=== PATIENT | female | born 1930 | race Caucasian/White ===

== ENCOUNTER 2017-03-02 05:30 | Outpatient (CLI) | payer MEDICARE ==
[~2017-03-02] VITALS: Ht 162.6 cm; Wt 68.9 kg
[2017-03-02] MEDS ORDERED: LEVO112T2 PO (14:37)
== END 2017-03-02 14:50 ==
LOC: PREOP 05:30 → EDUNIT# 10:00 → PREOP 14:50
PROVIDERS: ATTEND Otolaryngology Otolaryngology/Facial Plastic Surgery
DX: Z01.818 Encounter for other preprocedural examination (principal); C44.219 Basal cell carcinoma of skin of left ear and external auricular canal

== ENCOUNTER 2017-03-08 06:30 | Day surgery (SDC) | payer MEDICARE ==
[~2017-03-08] VITALS: Ht 162.6 cm; Wt 68.9 kg
[~2017-03-08 06:30] MED LIST: LEVO112T2 PO
--- NOTE | 2017-03-08 06:52 | Progress Note-Pre Operative ---
Pre-Operative Progress Note H&P Reviewed The H&P was reviewed, patient examined and no changes noted. Date Seen by Provider: Mar 08, 2017 Time Seen by Provider: 06:45 Date H&P Reviewed: Mar 08, 2017 Time H&P Reviewed: 06:45 Pre-Operative Diagnosis: Skin Cancer Left EAr RUTHANN SOUTH MD Mar 08, 2017 6:52 am
[2017-03-08] MEDS ORDERED: LACTATED RINGERS 1,000 ML IV PRN (07:02)
[2017-03-08] MEDS ORDERED: SCOPOLAMINE 1.5 MG (TRANSDERM-SCOP) PATCH TOP ONE (07:15)
[2017-03-08] MEDS ORDERED: FAMOTIDINE 20MG/2ML IV (PEPCID) IV ONE (07:15)
[2017-03-08] MEDS ORDERED: ONDANSETRON 4 MG/2 ML (SDV) Z0FRAN IV ONE (07:15)
[2017-03-08] MEDS ORDERED: DEXAMETHASONE 10 MG/ML (DECADRON) 1 ML VIAL ONE (07:54)
[2017-03-08] MEDS ORDERED: LIDOCAINE PF 2% 5 ML (XYLOCAINE) VIAL ONE (07:54)
[2017-03-08] MEDS ORDERED: fentaNYL INJECTION 100 MCG/2 ML AMP ONE (07:54)
[2017-03-08] MEDS ORDERED: proPOfol 200 MG/20 ML (DIPRIVAN) VIAL IV ONE (07:54)
[2017-03-08] MEDS ORDERED: SEVOFLURANE (ULTANE) 15 ML INHAL SOLN ONE ×5 (07:54→09:56)
[2017-03-08] MEDS ORDERED: LACTATED RINGERS 1,000 ML IV ONE (07:54)
[2017-03-08] MEDS ORDERED: ONDANSETRON 4 MG/2 ML (SDV) Z0FRAN ONE (07:54)
[2017-03-08] MEDS ORDERED: MULT-1021 PO (08:03)
[2017-03-08] MEDS ORDERED: CINN1CAP PO (08:03)
[2017-03-08] MEDS ORDERED: UBID1CAP53 PO (08:03)
[2017-03-08] MEDS ORDERED: SALM1CAP4 PO (08:03)
[2017-03-08] MEDS ORDERED: CHOL100045 PO (08:03)
[2017-03-08] MEDS ORDERED: GLUC100016 PO (08:03)
[2017-03-08] MEDS ORDERED: GING550C4 PO (08:03)
[2017-03-08] MEDS ORDERED: TURM500C4 PO (08:03)
[2017-03-08 08:08] VITALS: BP 183/91
[2017-03-08] MEDS ORDERED: MUPIROCIN 2% OINT 22 GM (BACTROBAN) TUBE ONE (08:12)
[2017-03-08] MEDS ORDERED: LIDOCAINE/EPI 1%-1:200,000 (XYLOCAINE) 30 ML VIAL ONE (08:12)
--- NOTE | 2017-03-08 09:50 | Progress Note-Post Operative ---
Post-Operative Progess Note Surgeon (s)/Director Clinical Pharmacology (s) Surgeon RUTHANN SOUTH MD Director Clinical Pharmacology n/a Pre-Operative Diagnosis Skin Cancer Left Ear Post-Operative Diagnosis same Post-Op Procedure Note Date of Procedure: Mar 08, 2017 Name of Procedure Performed: Excsion of BAsal Cell Left EAr, FTSG to Left EAr-donor site-left neck Description & Findings Description and Findings: n/a Anesthesia Type lma Estimated Blood Loss minimal Packing none. Specimen(s) collected/removed final margins clear RUTHANN SOUTH MD Mar 08, 2017 9:50 am
[2017-03-08] MEDS ORDERED: LABETALOL HCL 20 MG/4 ML VIAL ONE (09:55)
[2017-03-08] MEDS ORDERED: HYDROcodone/APAP 5 MG/325 MG (LORTAB) TAB PO PRN (10:00)
[2017-03-08] MEDS ORDERED: ONDANSETRON 4 MG/2 ML (SDV) Z0FRAN IVP PRN (10:00)
[2017-03-08] MEDS ORDERED: morphine INJ 10 MG/ML 1ML (SYR OR VIAL) IVP PRN (10:00)
[2017-03-08] MEDS ORDERED: ACETAMINOPHEN 325 MG TABLET/CAPLET (TYLENOL) PO PRN (10:00)
[2017-03-08 10:45] VITALS: BP 181/85
[2017-03-08] MEDS ORDERED: AZIT500T2 PO (11:13)
[2017-03-08] MEDS ORDERED: HYDR-3812 PO (11:13)
[2017-03-08 11:15] VITALS: BP 174/86
[2017-03-08 11:45] VITALS: BP 158/76
== END 2017-03-08 12:10 | disposition home or self-care (01) ==
LOC: SDC 06:30
PROVIDERS: ATTEND Otolaryngology Otolaryngology/Facial Plastic Surgery
DX: C44.219 Basal cell carcinoma of skin of left ear and external auricular canal (principal)
CPT/HCPCS: 87081